=== PATIENT | female | born 1945 | race Caucasian/White ===

== ENCOUNTER 2018-08-12 20:49 | Emergency (ER) | payer OTHER ==
[~2018-08-12] VITALS: Ht 162.6 cm; Wt 62.6 kg
[2018-08-12 21:04] VITALS: Ht 162.6 cm; Wt 62.6 kg
[2018-08-12 22:22] VITALS: PULSE 93; RESP 20
--- NOTE | 2018-08-12 22:26 | ERD ---
ER Documentation Chief Complaint Chief Complaint High BP HPI The patient is a 72-year-old female, presenting to the ER because high blood pressure of 179/110 at 8:30 PM. She then took an extra dose of losartan and hydrochlorothiazide before coming to the ER. She felt much better now, had similar symptom previously. She recently ate a lot of tuna fish that may contribute to her high blood pressure. She denies headache, dizziness, neck johnie n, chest pain, dyspnea, abdominal pain, vomiting, dysuria, diarrhea. She does not smoke nor drink Medical history: Hypertension Past surgical history: None ROS All systems reviewed and are negative except as per history of present illness. Medications Home Meds Active Scripts Losartan-Hydrochlorothiazide (Losartan-HCTZ) 50-12.5 Mg Tab, 1 TAB PO DAILY for 14 Days, TAB Prov:BLANCA BALDWIN MD 08/12/18 Allergies Allergies: Coded Allergies: No Known Drug Allergy (Verified Allergy, Unknown, 08/12/18) PMhx/Soc History of Surgery: No Anesthesia Reaction: No Hx Neurological Disorder: No Hx Respiratory Disorders: No Hx Cardiac Disorders: Yes (HTN) Hx Psychiatric Problems: No Hx Miscellaneous Medical Probl: No Hx Alcohol Use: No Hx Substance Use: No Hx Tobacco Use: No Smoking Status: Never smoker Physical Exam Vitals Vital Signs Date Temp Pulse Resp B/P (MAP) Pulse Ox O2 O2 Flow FiO2 Time Delivery Rate 08/12/18 148/84 23:21 (105) 08/12/18 93 20 163/90 99 Room Air 22:22 (114) 08/12/18 185/91 21:36 (122) 08/12/18 97.5 87 18 190/104 99 21:04 (132) Physical Exam Const: No acute distress. Head: Atraumatic. Eyes: Normal Conjunctiva. ENT: Normal External Ears, Nose and Mouth. Neck: Full range of motion. No meningismus. Resp: Clear to auscultation bilaterally. Cardio: Regular rate and rhythm. Abd: Soft, non distended, normal bowel sounds, non tender. Skin: No petechiae or rashes. Back: No midline or flank tenderness. Ext: No cyanosis, or edema. Neur: Awake and alert. No focal deficit Psych: Normal Mood and Affect. Procedures/MDM MEDICAL MAKING DECISION: The patient is a 72-year-old female, presenting with accelerated hypertension, improved in the ER and did not require any additional treatment. She is stable for o/p follow-up The differential diagnoses considered include but are not limited to medical noncompliance, dietary noncompliance, stress, anxiety attack, panic attack Departure Diagnosis: Primary Impression: Hypertension Additional Impression: Hypertensive crisis Condition: Good Comments I refill her losartan and hydrochlorothiazide for 2 weeks per her request I discussed the findings with the patient. I advised the patient to follow-up with the primary physician in about 2-3 days, sooner if needed and return if any concern. Disclaimer: Inadvertent spelling and grammatical errors are likely due to EHR/dictation software use and do not reflect on the overall quality of patient care. Also, please note that the electronic time recorded on this note does not necessarily reflect the actual time of the patient encounter. BLANCA BALDWIN MD Aug 12, 2018 22:26
[2018-08-12] MEDS ORDERED: LOSA1TAB22 PO (23:12)
[2018-08-12 23:21] VITALS: BP 148/84
== END 2018-08-12 23:21 | disposition home or self-care (01) ==
LOC: E/R 20:49
DX: I10 Essential (primary) hypertension (principal); I16.9 Hypertensive crisis, unspecified
CPT/HCPCS: 93005; 99283